=== PATIENT | male | born 1990 | race Native Hawaiian/Other Pacific Islander ===

== ENCOUNTER 2022-02-20 13:09 | Emergency (ER) | payer OTHER ==
[~2022-02-20] VITALS: Ht 175.3 cm; Wt 93.0 kg
[2022-02-20 13:18] VITALS: TEMP 97.2
[2022-02-20 14:15] VITALS: BP 123/77
== END 2022-02-20 14:15 | disposition home or self-care (01) ==
LOC: ED 13:09
DX: M54.59 Other low back pain (principal); M53.3 Sacrococcygeal disorders, not elsewhere classified
CPT/HCPCS: 96372; 99282; J1885